=== PATIENT | female | born 1945 ===

== ENCOUNTER 2025-01-06 06:00 | Day surgery (SDC) | payer OTHER ==
[2024-12-30 15:17] VITALS: BP 146/77
[~2025-01-06] VITALS: Ht 175.3 cm; Wt 79.8 kg
[~2025-01-06 06:00] MED LIST: ACID REDUCER20 M1 PO; ANASTROZOLE1 MG PO; ATORVASTATIN CA40 MG PO; FARXIGA10 MG PO; HORIZANT300 MG PO; LANTUS SOL100 UNIT/1; METFORMIN HCL1000 M2 PO; ZESTRIL2.5 MG PO
[2025-01-06] MEDS ORDERED: CEFTRIAXONE SODIUM 2,000 MG VIAL ONE (06:36)
[2025-01-06] MEDS ORDERED: METRONIDAZOLE/SODIUM CHLORIDE 500 MG/100 ML PIGGYBACK IV ONE ×2 (06:37→07:45)
[2025-01-06] MEDS ORDERED: DIBUCAINE 30 GM TUBE ONE (07:08)
[2025-01-06] MEDS ORDERED: LIDOCAINE HCL 1%/EPINEPHRINE 20ML VIAL IJ ONE ×2 (07:08→07:45)
[2025-01-06] MEDS ORDERED: HEMOSTATIC MATRIX 1 KIT KIT TOP ONE ×2 (07:08→07:45)
[2025-01-06] MEDS ORDERED: BUPIVACAINE HCL/MPF 0.5% 30ML VIAL ONE (07:08)
[2025-01-06] MEDS ORDERED: POVIDONE-IODINE 118 ML BOTT TOP ONE ×2 (07:13→07:45)
[2025-01-06] MEDS ORDERED: CEFTRIAXONE SODIUM 2,000 MG VIAL IV ONE (07:45)
[2025-01-06] MEDS ORDERED: BUPIVACAINE HCL/PF 0.25% 30ML VIAL InF ONE (07:45)
[2025-01-06] MEDS ORDERED: PERCOCET 5-3251 EACH PO (08:18)
[2025-01-06] MEDS ORDERED: RECTICARE30 GM TOP (08:19)
[2025-01-06] MEDS ORDERED: MORPHINE SULFATE 4 MG/ML VIAL IV ONE ×2 (13:00→14:30)
== END 2025-01-06 16:00 | disposition home or self-care (01) ==
LOC: CIR.AMB 06:00
PROVIDERS: ATTEND Surgery
DX: D01.3 Carcinoma in situ of anus and anal canal (principal); Z88.6 Allergy status to analgesic agent; Z91.013 Allergy to seafood; Z91.018 Allergy to other foods